=== PATIENT | female | born 1970 | race Asian ===

== ENCOUNTER 2021-05-02 11:22 | Emergency (ER) | payer OTHER ==
[~2021-05-02] VITALS: Ht 165.1 cm; Wt 59.1 kg
[2021-05-02 15:09] VITALS: BP 140/80
== END 2021-05-02 15:11 | disposition home or self-care (01) ==
LOC: EMS 11:34
DX: Z11.1 Encounter for screening for respiratory tuberculosis (principal)
CPT/HCPCS: 71045; 99281; 99283